=== PATIENT | male | born 1955 | race Two or more races ===

== ENCOUNTER 2022-12-01 15:55 | Inpatient (IN) | payer MEDICARE, MEDICAID ==
[~2022-12-01] VITALS: Ht 175.3 cm; Wt 135.0 kg
[2022-12-01 17:19] LABS: Hemoglobin 19.3 g/dL (13.5-17.5); Lymphocytes # (auto) 1.4 10 ^3/uL (0.4-5.4); Neutrophils # (auto) 5.2 10 ^3/uL (1.6-8.6)
[2022-12-01 17:21] LABS: Basophils # (auto) 0.1 10 ^3/uL (0-0.2); Basophils % (auto) 1.3 % (0.0-2.0); Eosinophils # (auto) 0.3 10 ^3/uL (0-0.8); Eosinophils % (auto) 3.9 % (0.0-7.0); Lymphocytes % (auto) 18.9 % (10.0-50.0); Mean Corpuscular Hgb Conc. 31.9 g/dL (32.0-36.0); Mean Corpuscular Volume 93.9 fL (80.0-100.0); Monocytes # (auto) 0.6 10 ^3/uL (0-1.3); Monocytes % (auto) 8.3 % (0.0-12.0); Neutrophils % (auto) 67.6 % (37.0-80.0); Nucleated Red Blood Cells % 1.5 %; Red Blood Cells 6.45 10^6/uL (4.5-5.90); White Blood Cell 7.6 10^3/uL (4.4-10.8)
[2022-12-01 17:24] LABS: Hematocrit 60.6 % (41.0-53.0)
[2022-12-01 17:32] LABS: Albumin 2.9 g/dL (3.4-5.0); Calcium 8.5 mg/dL (8.5-10.1); Potassium 5.3 mmol/L (3.5-5.1)
[2022-12-01 17:35] LABS: BUN/Creatinine Ratio 23.5 (10.0-20.0); Bilirubin, Total 0.7 mg/dL (0.2-1.0); Total Protein 6.4 g/dL (6.4-8.2)
[2022-12-01] MEDS ORDERED: FUROSEMIDE 40 MG/4 ML VIAL IV ONE (18:30)
[2022-12-01] MEDS ORDERED: SODIUM ZIRCONIUM CYCL 10 GM PAK PO ONE (22:00)
[2022-12-01] MEDS ORDERED: MORPHINE SULFATE INJ 2 MG/ml SYRG IV PRN (22:00)
[2022-12-01] MEDS ORDERED: TEMAZEPAM 15 MG CAP PO PRN (22:00)
[2022-12-01] MEDS ORDERED: ONDANSETRON HCL 4 MG/2 ML VIAL IV PRN (22:00)
[2022-12-01] MEDS ORDERED: NITROGLYCERIN 0.4 MG SL TAB SL PRN (22:00)
[2022-12-01] MEDS ORDERED: ALBUTEROL SULF 2.5 MG/0.5ML(0.5%) NEB SOLN NEB PRN (22:00)
[2022-12-01 22:23] VITALS: BP 113/62
[2022-12-01] MEDS: CARVEDILOL 3.125 MG TAB PO SCH (23:06)
[2022-12-02 00:26] LABS: INR 1.33 (0.9-1.15); Partial Thromboplastin Time 31.7 sec (24.6-33.4)
[2022-12-02] MEDS ORDERED: IOHEXOL 350 MG/ML 100ML IJ ONE (01:51)
[2022-12-02] MEDS ORDERED: FUROSEMIDE 20 MG/2 ML VIAL IV SCH (06:00)
[2022-12-02 07:06] LABS: Basophils # (auto) 0.1 10 ^3/uL (0-0.2); Basophils % (auto) 1.3 % (0.0-2.0); Eosinophils # (auto) 0.4 10 ^3/uL (0-0.8); Eosinophils % (auto) 3.4 % (0.0-7.0); Hemoglobin 19.6 g/dL (13.5-17.5); Lymphocytes # (auto) 1.3 10 ^3/uL (0.4-5.4); Mean Corpuscular Hgb Conc. 30.7 g/dL (32.0-36.0); Mean Corpuscular Volume 97.8 fL (80.0-100.0); Monocytes # (auto) 1.4 10 ^3/uL (0-1.3); Monocytes % (auto) 12.3 % (0.0-12.0); Neutrophils # (auto) 8.2 10 ^3/uL (1.6-8.6); Nucleated Red Blood Cells % 1.6 %; Red Blood Cells 6.52 10^6/uL (4.5-5.90); Red Cell Distribution Width 19.2 % (11.8-14.3); White Blood Cell 11.4 10^3/uL (4.4-10.8)
[2022-12-02 07:12] LABS: Hematocrit 63.8 % (41.0-53.0)
[2022-12-02] MEDS ORDERED: FUROSEMIDE 40 MG/4 ML VIAL IV ONE (09:15)
[2022-12-02] MEDS ORDERED: RIVA10TA2 PO (09:20)
[2022-12-02] MEDS: CARVEDILOL 3.125 MG TAB PO SCH (09:36)
[2022-12-02] MEDS ORDERED: PANTOPRAZOLE 40 MG TAB PO SCH (10:00)
[2022-12-02] MEDS: METOPROLOL TARTRATE 50 MG TAB PO SCH ×2 (10:45→21:56)
[2022-12-02 11:16] LABS: Basophils # (auto) 0.1 10 ^3/uL (0-0.2); Eosinophils # (auto) 0.3 10 ^3/uL (0-0.8); Eosinophils % (auto) 3.2 % (0.0-7.0); Hemoglobin 18.6 g/dL (13.5-17.5); White Blood Cell 8.6 10^3/uL (4.4-10.8)
[2022-12-02 11:18] LABS: Basophils % (auto) 1.3 % (0.0-2.0); Hematocrit 58.4 % (41.0-53.0); Lymphocytes # (auto) 0.9 10 ^3/uL (0.4-5.4); Lymphocytes % (auto) 10.1 % (10.0-50.0); Mean Corpuscular Hemoglobin 30.1 pg (28.0-32.0); Mean Corpuscular Hgb Conc. 31.8 g/dL (32.0-36.0); Mean Corpuscular Volume 94.4 fL (80.0-100.0); Monocytes # (auto) 0.5 10 ^3/uL (0-1.3); Monocytes % (auto) 6.4 % (0.0-12.0); Neutrophils # (auto) 6.8 10 ^3/uL (1.6-8.6); Nucleated Red Blood Cells % 0.8 %; Red Blood Cells 6.18 10^6/uL (4.5-5.90); Red Cell Distribution Width 18.2 % (11.8-14.3)
[2022-12-02] MEDS ORDERED: RIVAROXABAN 10 MG TAB PO ONE (11:45)
[2022-12-02 12:37] LABS: Alkaline Phosphatase 53 U/L (45-117); Anion Gap 2 (5-15); BUN/Creatinine Ratio 26.6 (10.0-20.0); Blood Urea Nitrogen 34 mg/dL (7-18); Carbon Dioxide 34 mmol/L (21-32); Chloride 96 mmol/L (98-107); GFR African American 72 mL/min; GFR Non-African American 60 mL/min; Glucose 200 mg/dL (74-106); Potassium 5.3 mmol/L (3.5-5.1); Sodium 132 mmol/L (136-145)
[2022-12-02 12:38] LABS: Alanine Aminotransferase 39 U/L (16-61); Albumin 2.6 g/dL (3.4-5.0); Aspartate Aminotransferase 25 U/L (15-37); Bilirubin, Total 0.8 mg/dL (0.2-1.0); Calcium 8.1 mg/dL (8.5-10.1); Cholesterol 155 mg/dL (< 200); HDL Cholesterol 23 mg/dL (40-59); LDL Cholesterol 103 mg/dL (< 100); Total Protein 6.6 g/dL (6.4-8.2); Triglycerides 117 mg/dL (< 150)
[2022-12-02 16:55] VITALS: BP 122/64
[2022-12-02 18:15] VITALS: BP 125/68
[2022-12-02] MEDS: CLINDAMYCIN HCL 150 MG CAP PO SCH (21:56)
[2022-12-02 23:02] VITALS: BP 130/78
[2022-12-03] VITALS (42 sets, daily range): BP systolic 96–131; BP diastolic 53–82
[2022-12-03] MEDS: CLINDAMYCIN HCL 150 MG CAP PO SCH (06:06)
[2022-12-03] MEDS: EMPAGLIFLOZIN 10 MG TAB PO SCH (06:07)
[2022-12-03 06:32] LABS: Basophils # (auto) 0.1 10 ^3/uL (0-0.2); Eosinophils # (auto) 0.2 10 ^3/uL (0-0.8); Eosinophils % (auto) 1.8 % (0.0-7.0); Lymphocytes # (auto) 0.9 10 ^3/uL (0.4-5.4); Mean Corpuscular Hemoglobin 30.5 pg (28.0-32.0); Monocytes # (auto) 0.9 10 ^3/uL (0-1.3); Neutrophils # (auto) 7.5 10 ^3/uL (1.6-8.6)
[2022-12-03 06:34] LABS: Anion Gap 4 (5-15); Blood Urea Nitrogen 39 mg/dL (7-18); Calcium 8.5 mg/dL (8.5-10.1); Carbon Dioxide 35 mmol/L (21-32); Chloride 96 mmol/L (98-107); GFR African American 74 mL/min; GFR Non-African American 61 mL/min; Glucose 172 mg/dL (74-106); Potassium 5.3 mmol/L (3.5-5.1); Sodium 135 mmol/L (136-145)
[2022-12-03 06:36] LABS: Basophils % (auto) 1.1 % (0.0-2.0); Hemoglobin 18.7 g/dL (13.5-17.5); Lymphocytes % (auto) 9.1 % (10.0-50.0); Mean Corpuscular Hgb Conc. 32.1 g/dL (32.0-36.0); Mean Corpuscular Volume 95.2 fL (80.0-100.0); Red Blood Cells 6.13 10^6/uL (4.5-5.90); Red Cell Distribution Width 17.9 % (11.8-14.3); White Blood Cell 9.4 10^3/uL (4.4-10.8)
[2022-12-03 07:10] LABS: Hematocrit 58.3 % (41.0-53.0)
[2022-12-03] MEDS: ACETAMINOPHEN 325 MG TAB PO PRN ×2 (08:54→18:10)
[2022-12-03] MEDS: cefTRIAXone 1GM/50ML D5W 50 ML IV SCH (08:54)
[2022-12-03] MEDS: METOPROLOL TARTRATE 50 MG TAB PO SCH (10:02)
[2022-12-03] MEDS: RIVAROXABAN 10 MG TAB PO SCH (10:02)
[2022-12-03] MEDS: FUROSEMIDE 20 MG/2 ML VIAL IV SCH (10:04)
[2022-12-03] MEDS ORDERED: SODIUM ZIRCONIUM CYCL 10 GM PAK PO ONE (10:15)
[2022-12-03] MEDS: IPRATROPIUM BROM 0.5 MG/2.5ML INH SOL NEB SCH ×2 (11:49→18:00)
[2022-12-03] MEDS: ALBUTEROL SULF 2.5 MG/0.5ML(0.5%) NEB SOLN NEB SCH ×2 (11:49→18:00)
[2022-12-03] MEDS ORDERED: NOREPINEPHRINE 8 MG/250ML KIT 250 ML IV ONE (14:38)
[2022-12-03] MEDS: NOREPINEPHRINE 8 MG/250ML KIT 250 ML IV SCH ×2 (14:45→15:09)
[2022-12-03] MEDS ORDERED: VANCOMYCIN PER PHARMACY 0 MG IV SCH (15:30)
[2022-12-03] MEDS ORDERED: BUMETANIDE 2.5mg/10ml (0.25 mg/ml) INJ IV ONE (15:30)
[2022-12-03] MEDS ORDERED: VANCOMYCIN 1GM/250ML 250 ML IV ONE (16:00)
[2022-12-03 16:08] LABS: INR 1.51 (0.9-1.15)
[2022-12-03] MEDS ORDERED: LIDOCAINE 1% (LOCAL ANESTH.) PF 5ml SDV ID ONE (18:00)
[2022-12-03] MEDS: VANCOMYCIN 1GM/250ML 250 ML IV SCH (20:10)
[2022-12-04] VITALS (75 sets, daily range): BP systolic 89–153; BP diastolic 46–130
[2022-12-04] MEDS: SODIUM CHLOR 0.9% PF (SALINE LOCK) 10ML VIAL/SYR IV SCH ×3 (04:59→21:25)
[2022-12-04] MEDS: ACETAMINOPHEN 325 MG TAB PO PRN ×3 (04:59→21:36)
[2022-12-04 05:14] LABS: Calcium 8.5 mg/dL (8.5-10.1); Eosinophils # (auto) 0.2 10 ^3/uL (0-0.8); Mean Corpuscular Hgb Conc. 31.9 g/dL (32.0-36.0); Neutrophils # (auto) 8.5 10 ^3/uL (1.6-8.6); Potassium 4.4 mmol/L (3.5-5.1); White Blood Cell 10.9 10^3/uL (4.4-10.8)
[2022-12-04 05:16] LABS: BUN/Creatinine Ratio 27.5 (10.0-20.0); Basophils # (auto) 0 10 ^3/uL (0-0.2); Basophils % (auto) 0.4 % (0.0-2.0); Eosinophils % (auto) 2.1 % (0.0-7.0); Hemoglobin 18.5 g/dL (13.5-17.5); Lymphocytes # (auto) 1.1 10 ^3/uL (0.4-5.4); Lymphocytes % (auto) 10.3 % (10.0-50.0); Mean Corpuscular Hemoglobin 30.3 pg (28.0-32.0); Monocytes % (auto) 9.2 % (0.0-12.0); Nucleated Red Blood Cells % 0.7 %; Red Cell Distribution Width 18.3 % (11.8-14.3)
[2022-12-04 05:21] LABS: Hematocrit 57.9 % (41.0-53.0)
[2022-12-04] MEDS: VANCOMYCIN 1GM/250ML 250 ML IV SCH ×2 (06:07→17:16)
[2022-12-04] MEDS: EMPAGLIFLOZIN 10 MG TAB PO SCH (06:56)
[2022-12-04] MEDS: ALBUTEROL SULF 2.5 MG/0.5ML(0.5%) NEB SOLN NEB SCH ×3 (07:07→20:20)
[2022-12-04] MEDS: IPRATROPIUM BROM 0.5 MG/2.5ML INH SOL NEB SCH ×3 (07:07→20:20)
[2022-12-04] MEDS: cefTRIAXone 1GM/50ML D5W 50 ML IV SCH (09:27)
[2022-12-04] MEDS: RIVAROXABAN 10 MG TAB PO SCH (09:27)
[2022-12-04] MEDS: FUROSEMIDE 20 MG/2 ML VIAL IV SCH (09:27)
[2022-12-04] MEDS ORDERED: DEXTROSE (50%) 50ML SYRG IV PRN (11:30)
[2022-12-04] MEDS: ACCU-CHEK COMFORT CURVE STRIP VI SCH ×3 (12:02→21:24)
[2022-12-04] MEDS: InsuLIN REG 1unit/0.01ml Soln (100units/ml) SC SCH ×3 (12:04→21:31)
[2022-12-04] MEDS: BUDESONIDE (INHALATION) 0.5 MG/2 ML NEB NEB SCH (20:20)
[2022-12-05] VITALS (28 sets, daily range): BP systolic 117–147; BP diastolic 63–102
[2022-12-05] MEDS: VANCOMYCIN 1GM/250ML 250 ML IV SCH ×3 (02:31→22:52)
[2022-12-05 04:44] LABS: Basophils # (auto) 0 10 ^3/uL (0-0.2); Basophils % (auto) 0.5 % (0.0-2.0); Eosinophils # (auto) 0.2 10 ^3/uL (0-0.8); Hemoglobin 18.1 g/dL (13.5-17.5); Lymphocytes # (auto) 0.7 10 ^3/uL (0.4-5.4); Neutrophils # (auto) 6.5 10 ^3/uL (1.6-8.6); Nucleated Red Blood Cells % 0.4 %; White Blood Cell 8.3 10^3/uL (4.4-10.8)
[2022-12-05 04:45] LABS: Eosinophils % (auto) 2.5 % (0.0-7.0); Hematocrit 55.2 % (41.0-53.0); Lymphocytes % (auto) 8.6 % (10.0-50.0); Mean Corpuscular Hemoglobin 30.6 pg (28.0-32.0); Mean Corpuscular Hgb Conc. 32.8 g/dL (32.0-36.0); Mean Corpuscular Volume 93.1 fL (80.0-100.0); Monocytes # (auto) 0.9 10 ^3/uL (0-1.3); Monocytes % (auto) 10.6 % (0.0-12.0); Neutrophils % (auto) 77.8 % (37.0-80.0); Red Blood Cells 5.93 10^6/uL (4.5-5.90); Red Cell Distribution Width 18.3 % (11.8-14.3)
[2022-12-05 05:10] LABS: BUN/Creatinine Ratio 29.7 (10.0-20.0); Calcium 8.4 mg/dL (8.5-10.1); Potassium 4.1 mmol/L (3.5-5.1)
[2022-12-05] MEDS: BUDESONIDE (INHALATION) 0.5 MG/2 ML NEB NEB SCH ×2 (05:53→18:41)
[2022-12-05] MEDS: ALBUTEROL SULF 2.5 MG/0.5ML(0.5%) NEB SOLN NEB SCH ×3 (05:53→18:40)
[2022-12-05] MEDS: IPRATROPIUM BROM 0.5 MG/2.5ML INH SOL NEB SCH ×3 (05:54→18:40)
[2022-12-05] MEDS: ACCU-CHEK COMFORT CURVE STRIP VI SCH ×4 (06:21→22:00)
[2022-12-05] MEDS: InsuLIN REG 1unit/0.01ml Soln (100units/ml) SC SCH ×4 (06:25→22:55)
[2022-12-05] MEDS: methylPREDNISolone SOD SUCC 40 MG/ML VL IV SCH ×2 (11:01→22:52)
[2022-12-05] MEDS: cefTRIAXone 1GM/50ML D5W 50 ML IV SCH (11:01)
[2022-12-05] MEDS: FUROSEMIDE 20 MG/2 ML VIAL IV SCH (11:01)
[2022-12-05] MEDS: RIVAROXABAN 10 MG TAB PO SCH (11:01)
[2022-12-05] MEDS: SODIUM CHLOR 0.9% PF (SALINE LOCK) 10ML VIAL/SYR IV SCH ×2 (11:07→22:52)
[2022-12-05] MEDS: HYDROcodone-ACET 5/325MG TAB PO PRN (11:07)
[2022-12-05] MEDS: NOREPINEPHRINE 8 MG/250ML KIT 250 ML IV SCH (12:09)
[2022-12-06] VITALS (24 sets, daily range): BP systolic 114–151; BP diastolic 63–92
[2022-12-06 05:20] LABS: Albumin 2.2 g/dL (3.4-5.0); Calcium 8.3 mg/dL (8.5-10.1); Potassium 4.8 mmol/L (3.5-5.1)
[2022-12-06 05:23] LABS: BUN/Creatinine Ratio 32.6 (10.0-20.0); Bilirubin, Total 0.5 mg/dL (0.2-1.0); Total Protein 6.6 g/dL (6.4-8.2)
[2022-12-06] MEDS: ACCU-CHEK COMFORT CURVE STRIP VI SCH ×4 (06:10→22:00)
[2022-12-06] MEDS: InsuLIN REG 1unit/0.01ml Soln (100units/ml) SC SCH ×4 (06:49→23:01)
[2022-12-06] MEDS: ALBUTEROL SULF 2.5 MG/0.5ML(0.5%) NEB SOLN NEB SCH ×4 (07:15→18:27)
[2022-12-06] MEDS: IPRATROPIUM BROM 0.5 MG/2.5ML INH SOL NEB SCH ×4 (07:15→18:27)
[2022-12-06] MEDS: BUDESONIDE (INHALATION) 0.5 MG/2 ML NEB NEB SCH ×2 (07:16→22:18)
[2022-12-06] MEDS: methylPREDNISolone SOD SUCC 40 MG/ML VL IV SCH ×2 (09:36→22:16)
[2022-12-06] MEDS: FUROSEMIDE 20 MG/2 ML VIAL IV SCH (09:36)
[2022-12-06] MEDS: RIVAROXABAN 10 MG TAB PO SCH (09:36)
[2022-12-06] MEDS: HYDROcodone-ACET 5/325MG TAB PO PRN ×3 (09:37→22:16)
[2022-12-06] MEDS: VANCOMYCIN 1GM/250ML 250 ML IV SCH ×2 (09:38→18:23)
[2022-12-06] MEDS: SODIUM CHLOR 0.9% PF (SALINE LOCK) 10ML VIAL/SYR IV SCH ×2 (09:39→22:17)
[2022-12-06] MEDS: AZITHROMYCIN 500MG/ 250ML 250 ML IV SCH (09:39)
[2022-12-06] MEDS: cefTRIAXone 1GM/50ML D5W 50 ML IV SCH (09:39)
[2022-12-06] MEDS ORDERED: DOCUSATE SOD 100 MG CAP PO PRN (10:45)
[2022-12-06] MEDS: ACETAMINOPHEN 325 MG TAB PO PRN (19:53)
[2022-12-07] VITALS (13 sets, daily range): BP systolic 116–144; BP diastolic 66–89
[2022-12-07] MEDS: VANCOMYCIN 1GM/250ML 250 ML IV SCH ×2 (04:49→14:27)
[2022-12-07] MEDS: IPRATROPIUM BROM 0.5 MG/2.5ML INH SOL NEB SCH ×3 (06:18→19:05)
[2022-12-07] MEDS: ALBUTEROL SULF 2.5 MG/0.5ML(0.5%) NEB SOLN NEB SCH ×3 (06:19→19:05)
[2022-12-07] MEDS: BUDESONIDE (INHALATION) 0.5 MG/2 ML NEB NEB SCH ×2 (06:19→19:05)
[2022-12-07] MEDS: HYDROcodone-ACET 5/325MG TAB PO PRN ×2 (06:34→14:32)
[2022-12-07] MEDS: InsuLIN REG 1unit/0.01ml Soln (100units/ml) SC SCH ×4 (06:53→21:24)
[2022-12-07] MEDS: ACCU-CHEK COMFORT CURVE STRIP VI SCH ×4 (07:25→21:21)
[2022-12-07 07:50] LABS: Basophils # (auto) 0 10 ^3/uL (0-0.2); Basophils % (auto) 0.1 % (0.0-2.0); Eosinophils # (auto) 0 10 ^3/uL (0-0.8); Hematocrit 55.9 % (41.0-53.0); Monocytes # (auto) 0.3 10 ^3/uL (0-1.3); Neutrophils # (auto) 7.9 10 ^3/uL (1.6-8.6); White Blood Cell 8.7 10^3/uL (4.4-10.8)
[2022-12-07 07:54] LABS: Lymphocytes # (auto) 0.4 10 ^3/uL (0.4-5.4); Lymphocytes % (auto) 5.1 % (10.0-50.0); Mean Corpuscular Hgb Conc. 32.1 g/dL (32.0-36.0); Mean Corpuscular Volume 93.5 fL (80.0-100.0); Monocytes % (auto) 3.6 % (0.0-12.0); Neutrophils % (auto) 91.2 % (37.0-80.0); Nucleated Red Blood Cells % 0.3 %; Red Blood Cells 5.98 10^6/uL (4.5-5.90); Red Cell Distribution Width 17.3 % (11.8-14.3)
[2022-12-07 08:28] LABS: Potassium 4.8 mmol/L (3.5-5.1)
[2022-12-07 08:34] LABS: BUN/Creatinine Ratio 42.6 (10.0-20.0)
[2022-12-07] MEDS: RIVAROXABAN 10 MG TAB PO SCH (10:19)
[2022-12-07] MEDS: AZITHROMYCIN 500MG/ 250ML 250 ML IV SCH (10:19)
[2022-12-07] MEDS: methylPREDNISolone SOD SUCC 40 MG/ML VL IV SCH ×2 (10:19→21:04)
[2022-12-07] MEDS: FUROSEMIDE 20 MG/2 ML VIAL IV SCH (10:19)
[2022-12-07] MEDS: cefTRIAXone 1GM/50ML D5W 50 ML IV SCH (10:19)
[2022-12-07] MEDS: SODIUM CHLOR 0.9% PF (SALINE LOCK) 10ML VIAL/SYR IV SCH ×2 (10:20→21:05)
[2022-12-08] MEDS: VANCOMYCIN 1GM/250ML 250 ML IV SCH ×3 (00:11→19:48)
[2022-12-08] MEDS: HYDROcodone-ACET 5/325MG TAB PO PRN ×3 (00:46→17:50)
[2022-12-08 02:31] VITALS: BP 116/66
[2022-12-08 06:00] VITALS: BP 154/89
[2022-12-08] MEDS: ACCU-CHEK COMFORT CURVE STRIP VI SCH ×4 (06:04→21:21)
[2022-12-08] MEDS: InsuLIN REG 1unit/0.01ml Soln (100units/ml) SC SCH ×4 (06:12→23:00)
[2022-12-08 06:41] LABS: Basophils # (auto) 0 10 ^3/uL (0-0.2); Eosinophils # (auto) 0 10 ^3/uL (0-0.8); Lymphocytes # (auto) 0.4 10 ^3/uL (0.4-5.4); Mean Corpuscular Hemoglobin 29.5 pg (28.0-32.0); Monocytes # (auto) 0.3 10 ^3/uL (0-1.3); Monocytes % (auto) 4.1 % (0.0-12.0)
[2022-12-08 06:43] LABS: Basophils % (auto) 0.1 % (0.0-2.0); Eosinophils % (auto) 0.1 % (0.0-7.0); Hematocrit 57.2 % (41.0-53.0); Hemoglobin 18.1 g/dL (13.5-17.5); Lymphocytes % (auto) 4.9 % (10.0-50.0); Mean Corpuscular Hgb Conc. 31.6 g/dL (32.0-36.0); Mean Corpuscular Volume 93.4 fL (80.0-100.0); Neutrophils # (auto) 6.9 10 ^3/uL (1.6-8.6); Neutrophils % (auto) 90.8 % (37.0-80.0); Nucleated Red Blood Cells % 0.2 %; Red Blood Cells 6.13 10^6/uL (4.5-5.90); Red Cell Distribution Width 17.6 % (11.8-14.3); White Blood Cell 7.6 10^3/uL (4.4-10.8)
[2022-12-08] MEDS: ALBUTEROL SULF 2.5 MG/0.5ML(0.5%) NEB SOLN NEB SCH ×3 (06:44→22:56)
[2022-12-08] MEDS: IPRATROPIUM BROM 0.5 MG/2.5ML INH SOL NEB SCH ×3 (06:44→22:56)
[2022-12-08 06:53] LABS: BUN/Creatinine Ratio 41.6 (10.0-20.0); Calcium 8.9 mg/dL (8.5-10.1); Potassium 4.6 mmol/L (3.5-5.1)
[2022-12-08 09:00] VITALS: BP 114/34
[2022-12-08] MEDS: methylPREDNISolone SOD SUCC 40 MG/ML VL IV SCH (09:26)
[2022-12-08] MEDS: RIVAROXABAN 10 MG TAB PO SCH (09:26)
[2022-12-08] MEDS: cefTRIAXone 1GM/50ML D5W 50 ML IV SCH (09:26)
[2022-12-08] MEDS: SODIUM CHLOR 0.9% PF (SALINE LOCK) 10ML VIAL/SYR IV SCH ×2 (09:30→21:30)
[2022-12-08] MEDS: FUROSEMIDE 20 MG/2 ML VIAL IV SCH (09:30)
[2022-12-08] MEDS: AZITHROMYCIN 500MG/ 250ML 250 ML IV SCH (10:31)
[2022-12-08 12:47] VITALS: BP 146/84
[2022-12-08] MEDS: BUDESONIDE (INHALATION) 0.5 MG/2 ML NEB NEB SCH ×2 (13:11→22:56)
[2022-12-08 17:00] VITALS: BP 110/47
[2022-12-08 22:00] VITALS: BP 146/80
[2022-12-09] MEDS: HYDROcodone-ACET 5/325MG TAB PO PRN ×4 (00:07→20:21)
[2022-12-09 05:00] VITALS: BP 147/84
[2022-12-09] MEDS: VANCOMYCIN 1GM/250ML 250 ML IV SCH (05:58)
[2022-12-09] MEDS: ACCU-CHEK COMFORT CURVE STRIP VI SCH ×4 (05:58→22:00)
[2022-12-09] MEDS: InsuLIN REG 1unit/0.01ml Soln (100units/ml) SC SCH ×4 (06:04→20:58)
[2022-12-09] MEDS: ALBUTEROL SULF 2.5 MG/0.5ML(0.5%) NEB SOLN NEB SCH ×3 (06:48→18:00)
[2022-12-09] MEDS: IPRATROPIUM BROM 0.5 MG/2.5ML INH SOL NEB SCH ×3 (06:48→18:00)
[2022-12-09] MEDS: BUDESONIDE (INHALATION) 0.5 MG/2 ML NEB NEB SCH ×2 (06:48→22:00)
[2022-12-09 08:36] VITALS: BP 141/78
[2022-12-09] MEDS: AZITHROMYCIN 500MG/ 250ML 250 ML IV SCH (09:40)
[2022-12-09] MEDS: cefTRIAXone 1GM/50ML D5W 50 ML IV SCH (09:40)
[2022-12-09] MEDS: predniSONE 5 MG TAB PO SCH (09:40)
[2022-12-09] MEDS: RIVAROXABAN 10 MG TAB PO SCH (09:40)
[2022-12-09] MEDS: FUROSEMIDE 20 MG/2 ML VIAL IV SCH (09:41)
[2022-12-09] MEDS: SODIUM CHLOR 0.9% PF (SALINE LOCK) 10ML VIAL/SYR IV SCH ×2 (09:49→22:00)
[2022-12-09] MEDS ORDERED: DOXY-346 PO (11:07)
[2022-12-09] MEDS ORDERED: ALBUAER3 IN (11:07)
[2022-12-09] MEDS ORDERED: FURO1TAB33 PO (11:07)
[2022-12-09] MEDS ORDERED: PRE5T PO (11:07)
[2022-12-09 12:42] VITALS: BP 133/82
[2022-12-09 16:55] VITALS: BP 134/82
[2022-12-09 22:00] VITALS: BP 154/84
[2022-12-10 04:00] VITALS: BP 128/80
[2022-12-10] MEDS: HYDROcodone-ACET 5/325MG TAB PO PRN ×2 (05:19→11:59)
[2022-12-10] MEDS: InsuLIN REG 1unit/0.01ml Soln (100units/ml) SC SCH ×3 (05:52→17:00)
[2022-12-10] MEDS: VANCOMYCIN 1GM/250ML 250 ML IV SCH ×2 (05:57→18:00)
[2022-12-10] MEDS: ACCU-CHEK COMFORT CURVE STRIP VI SCH ×3 (06:41→17:00)
[2022-12-10] MEDS: IPRATROPIUM BROM 0.5 MG/2.5ML INH SOL NEB SCH ×2 (07:06→11:46)
[2022-12-10] MEDS: ALBUTEROL SULF 2.5 MG/0.5ML(0.5%) NEB SOLN NEB SCH ×2 (07:06→11:46)
[2022-12-10] MEDS: BUDESONIDE (INHALATION) 0.5 MG/2 ML NEB NEB SCH (07:08)
[2022-12-10 09:00] VITALS: BP 151/79
[2022-12-10] MEDS: RIVAROXABAN 10 MG TAB PO SCH (09:37)
[2022-12-10] MEDS: predniSONE 5 MG TAB PO SCH (09:37)
[2022-12-10] MEDS: FUROSEMIDE 20 MG/2 ML VIAL IV SCH (09:38)
[2022-12-10] MEDS: AZITHROMYCIN 500MG/ 250ML 250 ML IV SCH (09:38)
[2022-12-10] MEDS: cefTRIAXone 1GM/50ML D5W 50 ML IV SCH (09:38)
[2022-12-10] MEDS: SODIUM CHLOR 0.9% PF (SALINE LOCK) 10ML VIAL/SYR IV SCH (09:55)
[2022-12-10 13:00] VITALS: BP 129/92
[2022-12-10 13:43] VITALS: BP 126/106
[2022-12-10] MEDS ORDERED: MORPHINE SULFATE INJ 2 MG/ml SYRG IV ONE (14:30)
[2022-12-10 17:04] VITALS: BP 128/99
== END 2022-12-10 16:00 | disposition home health service (06) | DRG 291 ==
LOC: ER 15:55 → TELE 22:10 → TELE-WESTW 12-02 21:35 → DOU IN ICU 12-03 12:27 → ICU CENTRL 12-03 18:34 → TELE-WESTW 12-07 08:20
PROVIDERS: ADMIT Nurse Practitioner; ATTEND Nurse Practitioner Acute Care
PROC: 5A09357 Assistance with Respiratory Ventilation, Less than 24 Consecutive Hours, Continuous Positive Airway Pressure (ICD-10-PCS; principal; 2022-12-02)
PROC: 5A09357 Assistance with Respiratory Ventilation, Less than 24 Consecutive Hours, Continuous Positive Airway Pressure (ICD-10-PCS; 2022-12-03)
PROC: 5A09357 Assistance with Respiratory Ventilation, Less than 24 Consecutive Hours, Continuous Positive Airway Pressure (ICD-10-PCS; 2022-12-04)
PROC: 5A09357 Assistance with Respiratory Ventilation, Less than 24 Consecutive Hours, Continuous Positive Airway Pressure (ICD-10-PCS; 2022-12-05)
PROC: 5A09357 Assistance with Respiratory Ventilation, Less than 24 Consecutive Hours, Continuous Positive Airway Pressure (ICD-10-PCS; 2022-12-06)
DX: I13.0 Hypertensive heart and chronic kidney disease with heart failure and stage 1 through stage 4 chronic kidney disease, or unspecified chronic kidney disease (principal); I50.43 Acute on chronic combined systolic (congestive) and diastolic (congestive) heart failure; J96.01 Acute respiratory failure with hypoxia; J96.02 Acute respiratory failure with hypercapnia; J18.9 Pneumonia, unspecified organism; L03.116 Cellulitis of left lower limb; J98.11 Atelectasis; Z68.41 Body mass index [BMI] 40.0-44.9, adult; L03.115 Cellulitis of right lower limb; N17.9 Acute kidney failure, unspecified; Z20.822 Contact with and (suspected) exposure to COVID-19; E11.22 Type 2 diabetes mellitus with diabetic chronic kidney disease; N18.9 Chronic kidney disease, unspecified; E66.01 Morbid (severe) obesity due to excess calories; E87.5 Hyperkalemia; I87.8 Other specified disorders of veins; Z86.711 Personal history of pulmonary embolism; Z79.01 Long term (current) use of anticoagulants; Z99.81 Dependence on supplemental oxygen
CPT/HCPCS: 36415; 36569; 36600; 71045; 71275; 80048; 80053; 80061; 80202; 82565; 82805; 82962; 83036; 83605; 83735; 83880; 84443; 84484; 85025; 85379; 85610; 85730; 87040; 87081; 87426; 93005; 93306; 93925; 93970; 94060; 94640; 94660; 96374; 96376; 97110; 97116; 97163; 97530; 99291; G0378; J0696; J1815